=== PATIENT | female | born 1965 | race Caucasian/White ===

== ENCOUNTER → 2020-03-07 | Outpatient (CLI) | payer OTHER | END | disposition home or self-care (01) | LOC: Rad HDHVI 13:55 | PROVIDERS: ATTEND Internal Medicine Cardiovascular Disease | DX: I10 Essential (primary) hypertension (principal); R07.89 Other chest pain; R94.31 Abnormal electrocardiogram [ECG] [EKG] | CPT/HCPCS: 93306 ==

== ENCOUNTER → 2020-04-07 | Outpatient (CLI) | payer OTHER ==
[~2020-04-07] VITALS: Ht 164.5 cm; Wt 60.3 kg
== END | disposition home or self-care (01) ==
LOC: Rad HDHVI 13:31
PROVIDERS: ATTEND Internal Medicine Cardiovascular Disease
DX: I10 Essential (primary) hypertension (principal); R07.9 Chest pain, unspecified; E78.00 Pure hypercholesterolemia, unspecified; Z13.9 Encounter for screening, unspecified; Z82.49 Family history of ischemic heart disease and other diseases of the circulatory system
CPT/HCPCS: 78452; 93017; 96374; A9500

== ENCOUNTER 2020-06-28 12:52 | Inpatient (IN) | payer OTHER ==
[~2020-06-28] VITALS: Ht 162.6 cm; Wt 61.3 kg
[2020-06-28 14:33] LABS: Basophils # (auto) 0 10 ^3/uL (0-0.2); Basophils % (auto) 0.4 % (0.0-2.0); Eosinophils # (auto) 0 10 ^3/uL (0-0.8); Eosinophils % (auto) 0.3 % (0.0-7.0); Hematocrit 42.4 % (36.0-46.0); Hemoglobin 14.7 g/dL (12.2-16.2); Lymphocytes # (auto) 1.2 10 ^3/uL (0.4-5.4); Mean Corpuscular Hemoglobin 32.2 pg (28.0-32.0); Mean Corpuscular Hgb Conc. 34.6 g/dL (32.0-36.0); Mean Corpuscular Volume 93.1 fL (80.0-100.0); Monocytes # (auto) 0.3 10 ^3/uL (0-1.3); Monocytes % (auto) 5.2 % (0.0-12.0); Neutrophils # (auto) 5.2 10 ^3/uL (1.6-8.6); Neutrophils % (auto) 76.1 % (37.0-80.0); Platelet Count (auto) 199 10^3/uL (140-450); Red Blood Cells 4.55 10^6/uL (4.0-5.20); Red Cell Distribution Width 13.8 % (11.8-14.3); White Blood Cell 6.8 10^3/uL (4.4-10.8)
[2020-06-28 15:01] LABS: Albumin 3.9 g/dL (3.4-5.0); Anion Gap 5 (5-15); Blood Urea Nitrogen 17 mg/dL (7-18); Calcium 9.4 mg/dL (8.5-10.1); Carbon Dioxide 27 mmol/L (21-32); Chloride 106 mmol/L (98-107); Glucose 104 mg/dL (74-106); Potassium 4.2 mmol/L (3.5-5.1); Sodium 138 mmol/L (136-145)
[2020-06-28 15:03] LABS: Alanine Aminotransferase 22 U/L (13-56); Aspartate Aminotransferase 13 U/L (15-37); GFR African American 104 mL/min; GFR Non-African American 86 mL/min
[2020-06-28 15:07] LABS: Alkaline Phosphatase 86 U/L (45-117); Bilirubin, Total 0.7 mg/dL (0.2-1.0); Total Protein 7.4 g/dL (6.4-8.2)
[2020-06-28 17:03] LABS: Urine Bacteria FEW /hpf (None Seen); Urine Blood Negative /uL (Negative); Urine Specific Gravity 1.007 (1.001-1.035); Urine WBC 23 /hpf (0 - 5)
[2020-06-28] MEDS ORDERED: ASPirin 81 mg TAB PO ONE (20:45)
[2020-06-28] MEDS ORDERED: cefTRIAXone 1GM/50ML D5W 50 ML IV ONE (22:30)
[2020-06-28] MEDS ORDERED: MORPHINE SULF INJ 2 MG/ML SYRINGE 1ML IV PRN (23:45)
[2020-06-28] MEDS ORDERED: DOCUSATE SOD 100 MG CAP PO PRN (23:45)
[2020-06-28] MEDS ORDERED: MORPHINE SULFATE 4 MG/ML SYR/VIAL IV PRN (23:45)
[2020-06-28] MEDS ORDERED: NITROGLYCERIN 0.4 MG SL TAB SL PRN (23:45)
[2020-06-29 00:12] LABS: INR 1.07 (0.9-1.15); Partial Thromboplastin Time 25.7 sec (23.0-31.2)
[2020-06-29 00:36] VITALS: BP 133/82
--- NOTE | 2020-06-29 00:36 | NUR ---
Telemetry admit from ER SALVADOR FUENTES A admitted to Telemetry unit after NO SBAR WAS received. Patient oriented to JORGE A mccracken RN, unit, room, bed, and unit policies regarding patient care and visiting hours. Patient now on continuous telemetry monitoring, tele box # 69 and telemetry reading on arrival to unit is NSR 61bpm. Patient weighed by bedscale and encouraged to call if they need something. All questions and concerns addressed, patient verbalized understanding. Patient is A/O x4, skin is intact, on RA, ambulatory. Patient states her chest pressure has been off and on since November when she first starting feeling sick. She has been tested for covid 3x, the last test was 1 month ago, all tests were negative.
[2020-06-29] MEDS: ONDANSETRON HCL 4 MG/2 ML VIAL IV PRN ×3 (01:45→22:11)
[2020-06-29] MEDS ORDERED: SIMV10TA84 PO (03:28)
[2020-06-29] MEDS ORDERED: BACI1CHW PO (03:54)
[2020-06-29] MEDS ORDERED: LORA-622 PO (03:54)
[2020-06-29] MEDS ORDERED: CYAN1KIT IJ (03:54)
[2020-06-29] MEDS ORDERED: GARL500T PO (03:54)
[2020-06-29] MEDS ORDERED: ALBU108A5 IN (03:54)
[2020-06-29] MEDS ORDERED: ESTR10TA VG (03:54)
[2020-06-29] MEDS ORDERED: CHOL200021 PO (03:54)
[2020-06-29] MEDS ORDERED: CYAN25006 (03:54)
[2020-06-29] MEDS ORDERED: GREE200C PO (03:54)
[2020-06-29] MEDS ORDERED: CRAN600T (03:54)
[2020-06-29] MEDS ORDERED: ALPR0.25 PO (03:54)
[2020-06-29] MEDS ORDERED: COCOOIL XX (03:54)
[2020-06-29] MEDS ORDERED: SERT-274 PO (03:54)
[2020-06-29] MEDS ORDERED: CALC625T13 PO (03:54)
[2020-06-29] MEDS ORDERED: CLOT1CRE13 TOP (03:54)
[2020-06-29] MEDS ORDERED: BUDE0.253 IN (03:54)
[2020-06-29] MEDS ORDERED: GARC500T OR (03:54)
[2020-06-29] MEDS ORDERED: TEMA15CA91 PO (03:54)
[2020-06-29] MEDS ORDERED: DOCU100T15 PO (03:54)
[2020-06-29] MEDS ORDERED: [UNRECOGNIZED DRUG - CODE] XX (03:54)
[2020-06-29] MEDS ORDERED: FLUT1SPR5 (03:54)
[2020-06-29] MEDS ORDERED: MULT1TAB70 PO (03:54)
[2020-06-29] MEDS ORDERED: ACET300T2 PO (03:54)
[2020-06-29] MEDS ORDERED: TURM500C3 (03:54)
[2020-06-29] MEDS ORDERED: FEXO-42 PO (03:54)
[2020-06-29] MEDS ORDERED: EVEN1000 PO (03:54)
[2020-06-29] MEDS ORDERED: HYDR2.5L TOP (03:54)
[2020-06-29] MEDS ORDERED: OMEG100078 PO (03:54)
[2020-06-29] MEDS ORDERED: GLUCTAB8 (03:54)
[2020-06-29 05:00] VITALS: BP 136/81
[2020-06-29] MEDS: SODIUM CHLOR 0.9% PF (SALINE LOCK) 10ML VIAL/SYR IV SCH ×3 (05:38→22:10)
[2020-06-29 05:48] LABS: White Blood Cell 5.2 10^3/uL (4.4-10.8)
[2020-06-29 05:49] LABS: Basophils # (auto) 0 10 ^3/uL (0-0.2); Basophils % (auto) 0.3 % (0.0-2.0); Eosinophils # (auto) 0 10 ^3/uL (0-0.8); Eosinophils % (auto) 0.9 % (0.0-7.0); Hematocrit 40.2 % (36.0-46.0); Hemoglobin 13.9 g/dL (12.2-16.2); Lymphocytes # (auto) 2.1 10 ^3/uL (0.4-5.4); Lymphocytes % (auto) 41.5 % (10.0-50.0); Mean Corpuscular Hemoglobin 31.9 pg (28.0-32.0); Mean Corpuscular Hgb Conc. 34.6 g/dL (32.0-36.0); Mean Corpuscular Volume 92.2 fL (80.0-100.0); Monocytes # (auto) 0.4 10 ^3/uL (0-1.3); Monocytes % (auto) 7.7 % (0.0-12.0); Neutrophils # (auto) 2.6 10 ^3/uL (1.6-8.6); Neutrophils % (auto) 49.6 % (37.0-80.0); Nucleated Red Blood Cells % 0.1 %; Platelet Count (auto) 191 10^3/uL (140-450); Red Blood Cells 4.36 10^6/uL (4.0-5.20); Red Cell Distribution Width 13.7 % (11.8-14.3)
[2020-06-29 06:02] LABS: Albumin 3.6 g/dL (3.4-5.0); Potassium 3.9 mmol/L (3.5-5.1)
[2020-06-29 06:09] LABS: Bilirubin, Total 0.9 mg/dL (0.2-1.0); Calcium 8.8 mg/dL (8.5-10.1); Total Protein 6.5 g/dL (6.4-8.2)
--- NOTE | 2020-06-29 07:55 | NUR ---
Opening Shift Note Assumed care of patient, awake and alert. No S/S of distress/SOB or pain. Instructed on POC and to call for assist PRN, will continue to monitor for changes Q1hr and PRN.
[2020-06-29 09:09] VITALS: BP 126/90
[2020-06-29] MEDS ORDERED: ASPirin 81 mg TAB PO SCH (10:00)
[2020-06-29] MEDS ORDERED: cefTRIAXone SOD 500 MG VL IV SCH (10:00)
[2020-06-29] MEDS: cefTRIAXone 1GM/50ML D5W 50 ML IV SCH (10:38)
[2020-06-29] MEDS: PANTOPRAZOLE 40 MG/10 ML VIAL INJ IV SCH (10:40)
[2020-06-29] MEDS: amLODIPine BESYLATE 5 MG TAB PO SCH (10:40)
[2020-06-29 12:46] VITALS: BP 126/84
[2020-06-29] MEDS: MORPHINE SULF INJ 2 MG/ML SYRINGE 1ML IV PRN ×2 (16:01→22:11)
[2020-06-29] MEDS: ACETAMINOPHEN 325 MG TAB PO PRN ×2 (16:02→22:11)
[2020-06-29 16:19] VITALS: BP 125/76
--- NOTE | 2020-06-29 16:31 | NUR ---
Pain Patient verbalized that her pain is gone, she is just trying to get some sleep now.
[2020-06-29 21:53] VITALS: BP 129/86
[2020-06-29] MEDS: ATORVASTATIN 20 MG TAB PO SCH (22:11)
[2020-06-29] MEDS: TEMAZEPAM 15 MG CAP PO SCH (23:19)
[2020-06-30 05:03] VITALS: BP 126/78
[2020-06-30] MEDS: SODIUM CHLOR 0.9% PF (SALINE LOCK) 10ML VIAL/SYR IV SCH ×3 (05:51→22:20)
[2020-06-30 09:00] VITALS: BP 137/76
[2020-06-30] MEDS: cefTRIAXone 1GM/50ML D5W 50 ML IV SCH (09:30)
[2020-06-30] MEDS: PANTOPRAZOLE 40 MG/10 ML VIAL INJ IV SCH (09:33)
[2020-06-30] MEDS: ASPirin 81 mg TAB PO SCH (09:33)
[2020-06-30] MEDS: amLODIPine BESYLATE 5 MG TAB PO SCH (09:34)
[2020-06-30 12:34] VITALS: BP 119/75
--- NOTE | 2020-06-30 13:05 | NUR ---
Hospitalist Rounded Dr. Field at bedside.
[2020-06-30] MEDS: ACETAMINOPHEN 325 MG TAB PO PRN (14:29)
[2020-06-30 16:58] VITALS: BP 125/87
[2020-06-30 22:00] VITALS: BP 142/84
[2020-06-30] MEDS: DOCUSATE SOD 100 MG CAP PO SCH (22:20)
[2020-06-30] MEDS: ATORVASTATIN 20 MG TAB PO SCH (22:20)
[2020-06-30] MEDS: ONDANSETRON HCL 4 MG/2 ML VIAL IV PRN (22:21)
[2020-06-30] MEDS: MORPHINE SULF INJ 2 MG/ML SYRINGE 1ML IV PRN (22:21)
[2020-06-30] MEDS: TEMAZEPAM 15 MG CAP PO SCH (22:53)
[2020-06-30] MEDS: HYDROCORTONE 1% TOPICAL CREAM 30 GM TUBE TOP SCH (23:15)
[2020-07-01 05:00] VITALS: BP 118/81
[2020-07-01] MEDS: SODIUM CHLOR 0.9% PF (SALINE LOCK) 10ML VIAL/SYR IV SCH ×3 (06:07→22:04)
--- NOTE | 2020-07-01 08:15 | NUR ---
Opening Note Assumed care of patient, she is A & O x4, no s/s of distress. Patient complains of discomfort to the right shoulder pain /. Will medicate per orders. Will continue to monitor Q1h and PRN.
[2020-07-01] MEDS: cefTRIAXone 1GM/50ML D5W 50 ML IV SCH (09:43)
[2020-07-01] MEDS: ACETAMINOPHEN 325 MG TAB PO PRN ×2 (09:45→22:05)
[2020-07-01] MEDS: DOCUSATE SOD 100 MG CAP PO SCH ×2 (09:47→22:04)
[2020-07-01] MEDS: ASPirin 81 mg TAB PO SCH (09:47)
[2020-07-01] MEDS: HYDROCORTONE 1% TOPICAL CREAM 30 GM TUBE TOP SCH ×2 (09:48→22:04)
[2020-07-01] MEDS: amLODIPine BESYLATE 5 MG TAB PO SCH (09:48)
[2020-07-01] MEDS: PANTOPRAZOLE 40 MG/10 ML VIAL INJ IV SCH (10:40)
[2020-07-01 12:58] VITALS: BP 113/75
[2020-07-01 16:44] VITALS: BP 106/75
[2020-07-01 22:00] VITALS: BP 121/78
[2020-07-01] MEDS: ATORVASTATIN 20 MG TAB PO SCH (22:04)
[2020-07-01] MEDS: ONDANSETRON HCL 4 MG/2 ML VIAL IV PRN (22:05)
[2020-07-01] MEDS: MORPHINE SULF INJ 2 MG/ML SYRINGE 1ML IV PRN (22:05)
[2020-07-01] MEDS: TEMAZEPAM 15 MG CAP PO SCH (22:29)
[2020-07-02 05:25] VITALS: BP 121/79
[2020-07-02] MEDS: SODIUM CHLOR 0.9% PF (SALINE LOCK) 10ML VIAL/SYR IV SCH ×3 (05:49→21:09)
[2020-07-02 09:00] VITALS: BP 120/87
[2020-07-02] MEDS: cefTRIAXone 1GM/50ML D5W 50 ML IV SCH (09:08)
[2020-07-02] MEDS: PANTOPRAZOLE 40 MG/10 ML VIAL INJ IV SCH (09:08)
[2020-07-02] MEDS: ASPirin 81 mg TAB PO SCH (09:09)
[2020-07-02] MEDS: amLODIPine BESYLATE 5 MG TAB PO SCH (09:09)
[2020-07-02] MEDS: DOCUSATE SOD 100 MG CAP PO SCH ×2 (09:09→21:09)
[2020-07-02] MEDS: HYDROCORTONE 1% TOPICAL CREAM 30 GM TUBE TOP SCH ×2 (09:09→21:10)
--- NOTE | 2020-07-02 09:19 | NUR ---
Patient is waiting for results, would like to speak with Dr. Field. Will page.
[2020-07-02 13:00] VITALS: BP 135/87
[2020-07-02] MEDS: ACETAMINOPHEN 325 MG TAB PO PRN ×2 (13:02→21:11)
--- NOTE | 2020-07-02 16:52 | NUR ---
Nutrition Assessment Notes Please refer to link for full assessment notes. Est Energy needs: 9754-1717 kcals (23-25 kcal/kgBW) Est Protein needs: 48-60 gms/day (0.8-1.0 gm/kgBW) Will continue to monitor and reassess prn. Addendum: 07/02/20 at [address] Amended: Links added.
[2020-07-02 17:00] VITALS: BP 126/82
--- NOTE | 2020-07-02 18:30 | NUR ---
Dr. Field at bedside. Orders received, read back and verified for blood work.
--- NOTE | 2020-07-02 18:40 | NUR ---
Unable to order one lab test that was requested. [facility] is a restricted lab, spoke to lab to clarify, was unable to order for Dr. Field. Will pass this on in report as the doctor has gone for the night.
--- NOTE | 2020-07-02 19:35 | NUR ---
Opening Shift Note Assumed care of patient, awake and alert/oriented x 4. No S/S of distress/SOB or pain. Tele box number matches and all leads are in position. Bed lowered and locked side rails up x 2 call light and bedside table are within reach. Instructed on POC and to call for assist PRN, will continue to monitor for changes Q1hr and PRN.
[2020-07-02] MEDS: ATORVASTATIN 20 MG TAB PO SCH (21:09)
[2020-07-02] MEDS: TEMAZEPAM 15 MG CAP PO SCH (21:10)
[2020-07-02 22:01] VITALS: BP 140/97
[2020-07-03 05:00] VITALS: BP 116/79
[2020-07-03] MEDS: SODIUM CHLOR 0.9% PF (SALINE LOCK) 10ML VIAL/SYR IV SCH ×2 (05:45→15:02)
[2020-07-03 09:00] VITALS: BP 133/82
[2020-07-03] MEDS: amLODIPine BESYLATE 5 MG TAB PO SCH (10:03)
[2020-07-03] MEDS: PANTOPRAZOLE 40 MG/10 ML VIAL INJ IV SCH (10:03)
[2020-07-03] MEDS: ASPirin 81 mg TAB PO SCH (10:03)
[2020-07-03] MEDS: cefTRIAXone 1GM/50ML D5W 50 ML IV SCH (10:03)
[2020-07-03] MEDS: DOCUSATE SOD 100 MG CAP PO SCH (10:04)
[2020-07-03] MEDS: HYDROCORTONE 1% TOPICAL CREAM 30 GM TUBE TOP SCH (11:42)
[2020-07-03 13:00] VITALS: BP 118/85
[2020-07-03 16:13] VITALS: BP 122/82
--- NOTE | 2020-07-03 19:54 | NUR ---
Discharge Discharge instructions given as ordered. Encourage to follow up with primary care provider as instructed. All questions and concerns addressed. Patient verbalized understanding. Medication reconciliation form completed and copy given to patient. IV removed with catheter intact, pressure dressing applied. Telemetry unit returned to ICU. Patient taken to vehicle via wheelchair with all personal belongings, accompanied by staff. No distress noted at time of departure.
== END 2020-07-03 19:54 | disposition home or self-care (01) | DRG 545 ==
LOC: ER 12:52 → TELE-WESTW 12:53
PROVIDERS: ADMIT Nurse Practitioner Family; ATTEND Internal Medicine Cardiovascular Disease
DX: I77.6 Arteritis, unspecified (principal); J18.9 Pneumonia, unspecified organism; J96.91 Respiratory failure, unspecified with hypoxia; I20.0 Unstable angina; J44.0 Chronic obstructive pulmonary disease with (acute) lower respiratory infection; N30.00 Acute cystitis without hematuria; E03.9 Hypothyroidism, unspecified; F32.9 Major depressive disorder, single episode, unspecified; F41.9 Anxiety disorder, unspecified; E11.42 Type 2 diabetes mellitus with diabetic polyneuropathy; I10 Essential (primary) hypertension; E11.21 Type 2 diabetes mellitus with diabetic nephropathy; K58.9 Irritable bowel syndrome, unspecified; Z82.49 Family history of ischemic heart disease and other diseases of the circulatory system; I25.2 Old myocardial infarction
CPT/HCPCS: 36415; 71046; 80053; 80061; 81001; 83735; 83880; 84443; 84484; 85025; 85379; 85610; 85613; 85670; 85705; 85730; 85732; 86235; 86800; 93005; 96365; C9113; G0378; J0696; J2405

== ENCOUNTER 2020-12-01 21:28 | Emergency (ER) | payer OTHER ==
[~2020-12-01] VITALS: Ht 162.6 cm; Wt 64.4 kg
[~2020-12-01 21:28] MED LIST: ACET300T2 PO; ALBU108A5 IN; ALPR0.25 PO; BACI1CHW PO; BUDE0.253 IN; CALC625T13 PO; CHOL200021 PO; CLOT1CRE13 TOP; COCOOIL XX; CRAN600T; CYAN1KIT IJ; CYAN25006; DOCU100T15 PO; ESTR10TA VG; EVEN1000 PO; FEXO-42 PO; FLUT1SPR5; GARC500T OR; GARL500T PO; GLUCTAB8; GREE200C PO; HYDR2.5L TOP; LORA-622 PO; MULT1TAB70 PO; OMEG100078 PO; SERT-274 PO; SIMV10TA84 PO; TEMA15CA2 PO; TURM500C3; [UNRECOGNIZED DRUG - CODE] XX
[2020-12-01 22:32] LABS: Basophils # (auto) 0 10 ^3/uL (0-0.2); Basophils % (auto) 0.6 % (0.0-2.0); Eosinophils # (auto) 0.1 10 ^3/uL (0-0.8); Hematocrit 41.7 % (36.0-46.0); Hemoglobin 14.5 g/dL (12.2-16.2); Lymphocytes # (auto) 2.4 10 ^3/uL (0.4-5.4); Lymphocytes % (auto) 40.6 % (10.0-50.0); Mean Corpuscular Hemoglobin 32.8 pg (28.0-32.0); Mean Corpuscular Hgb Conc. 34.8 g/dL (32.0-36.0); Mean Corpuscular Volume 94.3 fL (80.0-100.0); Monocytes # (auto) 0.4 10 ^3/uL (0-1.3); Monocytes % (auto) 6.1 % (0.0-12.0); Neutrophils % (auto) 51.7 % (37.0-80.0); Nucleated Red Blood Cells % 0.2 %; Platelet Count (auto) 146 10^3/uL (140-450); Red Blood Cells 4.42 10^6/uL (4.0-5.20); Red Cell Distribution Width 13.3 % (11.8-14.3); White Blood Cell 5.8 10^3/uL (4.4-10.8)
[2020-12-01 22:47] LABS: Albumin 4.2 g/dL (3.4-5.0); Anion Gap 4 (5-15); Blood Urea Nitrogen 14 mg/dL (7-18); Calcium 9.3 mg/dL (8.5-10.1); Carbon Dioxide 27 mmol/L (21-32); Chloride 108 mmol/L (98-107); Glucose 104 mg/dL (74-106); Magnesium 2.4 mg/dL (1.6-2.6); Potassium 4.8 mmol/L (3.5-5.1); Sodium 139 mmol/L (136-145)
[2020-12-01 23:04] LABS: Alanine Aminotransferase 38 U/L (13-56); Alkaline Phosphatase 76 U/L (45-117); Aspartate Aminotransferase 40 U/L (15-37); BUN/Creatinine Ratio 19.4; Bilirubin, Total 0.4 mg/dL (0.2-1.0); GFR African American 107 mL/min; GFR Non-African American 89 mL/min; Total Protein 7.6 g/dL (6.4-8.2)
[2020-12-01 23:56] LABS: INR 0.99 (0.9-1.15); Partial Thromboplastin Time 23.6 sec (23.0-31.2)
[2020-12-02] MEDS ORDERED: diazePAM 5 MG TAB PO ONE (01:00)
[2020-12-02 02:46] VITALS: BP 157/96
== END 2020-12-02 03:22 | disposition home or self-care (01) ==
LOC: ER 21:30
DX: R07.89 Other chest pain (principal); E78.5 Hyperlipidemia, unspecified; Z20.822 Contact with and (suspected) exposure to COVID-19; Z79.899 Other long term (current) drug therapy
CPT/HCPCS: 36415; 71045; 80053; 83735; 83880; 84443; 84484; 85025; 85610; 85730; 93005

== ENCOUNTER → 2021-01-06 | Outpatient (CLI) | payer OTHER ==
[2021-01-06 15:43] LABS: Urine Blood Negative /uL (Negative); Urine Specific Gravity 1.007 (1.001-1.035)
== END | disposition home or self-care (01) ==
LOC: LAB 13:20
PROVIDERS: ATTEND Internal Medicine
DX: N39.0 Urinary tract infection, site not specified (principal)
CPT/HCPCS: 81003